=== PATIENT | female | born 1955 | race African-American/Black ===

== ENCOUNTER 2016-08-20 22:44 | Inpatient (IN) | payer OTHER ==
[~2016-08-20] VITALS: Ht 172.7 cm; Wt 97.3 kg
[~2016-08-20 22:44] MED LIST: BACL-141 PO; BENA20TA3 PO; IBUP-1509 PO
[2016-08-20] MEDS ORDERED: SODIUM CHLORIDE 0.9% 1000ML BAG (SEPSIS BOLUS) IV ONE (23:15)
[2016-08-20] MEDS ORDERED: ACETAMINOPHEN 325MG TABLET PO ONE (23:15)
[2016-08-20 23:18] LABS: BG BASE EXCESS -1.5 mmol/L (-2.0-2.0); BG CARBOXYHEMOGLOBIN 4.2 % (0.5-1.5); BG FRACTION INSPIRED OXYGEN 21; BG HCO3 ACT 23.5 mmol/L (22.0-26.0); BG METHEMOGLOBIN 0.1 % (0.0-1.5); BG OXYGEN SATURATION 92.7 % (92.0-98.5); BG OXYHEMOGLOBIN 88.7 % (94.0-97.0); BG PCO2 40.6 mmHg (35.0-45.0); BG PO2 67.6 mmHg (75.0-100.0); BG SAMPLE SITE LEFT RADIAL; BG TOTAL HEMOGLOBIN 15.1 g/dL (12.0-18.0); BG VENT MODE ROOM AIR
[2016-08-20 23:35] LABS: BASOPHILS % 0.2 % (0.0-2.0); EOSINOPHILS % 3.4 % (0.0-5.0); HEMATOCRIT. 41.9 % (36.0-48.0); HEMOGLOBIN. 14.3 g/dL (12.0-16.0); LYMPHOCYTES % 32.7 % (20.0-50.0); MEAN CORPUSCULAR HGB CONC 34.1 g/dL (31.0-37.0); MEAN PLATELET VOLUME 8.2 fl (7.4-10.4); MONOCYTES % 9.1 % (2.0-8.0); NEUTROPHILS % 54.6 % (40.0-76.0); PLATELET 229 x1000/uL (130-400); RED BLOOD CELL COUNT 4.31 mill/uL (4.2-5.4); RED CELL DISTRIBUTION WIDTH 13.1 % (11.6-14.6); WHITE BLOOD COUNT 9.3 x1000/uL (4.5-11.0)
[2016-08-20 23:50] LABS: AMMONIA 28 uMol/L (<32)
[2016-08-20 23:54] LABS: ACETAMINOPHEN < 2 ug/mL (10-30); ALANINE AMINOTRANSFERASE 47 IU/L (13-61); ALBUMIN 3.8 g/dL (3.4-5.0); ANION GAP 9; CALCIUM 8.3 mg/dL (8.5-10.1); CARBON DIOXIDE 24 mEq/L (21-32); CHLORIDE 110 mEq/L (98-107); ETHANOL BLOOD < 10 mg/dL; INDEX HEMOLYSI 1 (1-3); INDEX ICTERIC 1 (1-4); INDEX LIPEMIC 1 (1-3); NT PRO B-TYPE NATRIURETIC PEP 24 pg/mL (5-125); TROPONIN I < 0.02 ng/mL (0.00-0.04); UREA NITROGEN BLOOD 26 mg/dL (7-21); eGFR > 60 mL/min (>60)
[2016-08-21] LABS: THYROID STIMULATING HORMONE 0.79 uIU/mL (0.36-3.74)
[2016-08-21] MEDS ORDERED: AZITHROMYCIN 500 MG TABLET PO ONE (00:45)
[2016-08-21] MEDS ORDERED: CLONIDINE 0.1MG TABLET PO PRN (02:00)
[2016-08-21] MEDS ORDERED: MAGNESIUM/ALUMINUM HYDROXIDE/SIMETHICONE 30ML UDC PO PRN (02:00)
[2016-08-21] MEDS ORDERED: ENOXAPARIN 40MG/0.4ML SYR SUBCUT SCH (02:00)
[2016-08-21] MEDS ORDERED: ONDANSETRON HCL 4MG/2ML VIAL IV PRN (02:00)
[2016-08-21] MEDS ORDERED: IPRATROPIUM/ALBUTEROL 0.5-3(2.5)MG/3ML NEB INH PRN (02:00)
[2016-08-21] MEDS ORDERED: ACETAMINOPHEN 325MG TABLET PO PRN (02:00)
[2016-08-21 02:10] LABS: CLARITY URINE CLEAR (CLEAR); COLOR URINE YELLOW (YELLOW); GLUCOSE URINE NEGATIVE (NEGATIVE); KETONES URINE NEGATIVE (NEGATIVE); LEUKOCYTE ESTERASE URINE NEGATIVE (NEGATIVE); NITRITE URINE NEGATIVE (NEGATIVE); OCCULT BLOOD URINE NEGATIVE (NEGATIVE); PROTEIN URINE 2+ (NEGATIVE); SPECIFIC GRAVITY URINE 1.015 (1.005-1.030); UROBILINOGEN URINE 0.2 E.U./dL (0.2-1.0)
[2016-08-21 02:24] LABS: RBC URINE NONE SEEN /hpf (0-2)
[2016-08-21 02:25] LABS: BACTERIA URINE NONE SEEN; SQUAMOUS EPITHELIAL CELL URINE 1+ /lpf (RARE/1+); WBC URINE 0-2 /hpf (0-2)
[2016-08-21 02:31] LABS: MAGNESIUM 2.3 mg/dL (1.8-2.4)
[2016-08-21 05:45] VITALS: BP 133/87
[2016-08-21 05:48] VITALS: BP 133/87
[2016-08-21 06:49] LABS: BASOPHILS % 0.6 % (0.0-2.0); EOSINOPHILS % 2.5 % (0.0-5.0); HEMOGLOBIN. 13.1 g/dL (12.0-16.0); LYMPHOCYTES % 42.5 % (20.0-50.0); MEAN CORPUSCULAR HEMOGLOBIN 32.7 pg (28.0-32.0); MEAN CORPUSCULAR HGB CONC 33.6 g/dL (31.0-37.0); MEAN CORPUSCULAR VOLUME 97.2 fL (81.0-99.0); MEAN PLATELET VOLUME 8.4 fl (7.4-10.4); MONOCYTES % 8.3 % (2.0-8.0); NEUTROPHILS % 46.1 % (40.0-76.0); PLATELET 207 x1000/uL (130-400); RED BLOOD CELL COUNT 4.01 mill/uL (4.2-5.4); RED CELL DISTRIBUTION WIDTH 13.2 % (11.6-14.6); WHITE BLOOD COUNT 9.9 x1000/uL (4.5-11.0)
[2016-08-21 07:55] LABS: ALANINE AMINOTRANSFERASE 39 IU/L (13-61); ALBUMIN 3.4 g/dL (3.4-5.0); ANION GAP 11; CARBON DIOXIDE 25 mEq/L (21-32); CHLORIDE 111 mEq/L (98-107); CREATINE KINASE 107 IU/L (26-192); CREATINE KINASE MB FRACTION 1.1 ng/mL (0.5-3.6); HDL CHOLESTEROL 62 mg/dL (40-59); INDEX HEMOLYSI 1 (1-3); INDEX ICTERIC 1 (1-4); INDEX LIPEMIC 1 (1-3); LDL CHOLESTEROL 80 mg/dL (5-100); TRIGLYCERIDE 96 mg/dL (0-150); TROPONIN I < 0.02 ng/mL (0.00-0.04); UREA NITROGEN BLOOD 17 mg/dL (7-21); eGFR > 60 mL/min (>60)
[2016-08-21 08:00] VITALS: BP_SYST 126; BP_SYST 148; BP_DIAS 76; BP_DIAS 88
[2016-08-21] MEDS ORDERED: PNEUMOCOCCAL 23-VAL P-SAC VAC 0.5 ML IM ONE (10:30)
[2016-08-21] MEDS: ENOXAPARIN 30MG/0.3ML SYR SUBCUT SCH ×2 (11:12→20:39)
[2016-08-21] MEDS: PIPERACILLIN/TAZ 3.375G PREMIX 50 ML IV SCH ×3 (11:13→23:49)
[2016-08-21] MEDS: SODIUM CHLORIDE 0.9% 1,000 ML IV SCH ×2 (11:13→14:22)
[2016-08-21 11:52] LABS: *AMPHETAMINES SCREEN URINE NEGATIVE (NEGATIVE); *BARBITURATES SCREEN URINE NEGATIVE (NEGATIVE); *BENZODIAZEPINES SCREEN URINE NEGATIVE (NEGATIVE); *COCAINE SCREEN URINE PRESUMTIVE POSITIVE (NEGATIVE); CANNABINOID URINE SCREEN PRESUMTIVE POSITIVE (NEGATIVE); ECSTASY MDMA SCREEN URINE NEGATIVE (NEGATIVE); METHADONE URINE SCREEN NEGATIVE (NEGATIVE); OPIATES URINE SCREEN NEGATIVE (NEGATIVE); PHENCYCLIDINE URINE SCREEN PRESUMTIVE POSITIVE (NEGATIVE)
[2016-08-21 12:00] VITALS: BP 134/76
[2016-08-21] MEDS: AMLODIPINE 5MG TABLET PO SCH (15:12)
[2016-08-21] MEDS: HYDROCODONE/APAP 7.5/325MG 1 TAB TABLET PO PRN ×3 (15:13→23:57)
[2016-08-21 16:00] VITALS: BP 128/87
[2016-08-21 16:20] LABS: CREATINE KINASE 118 IU/L (26-192); CREATINE KINASE MB FRACTION 0.9 ng/mL (0.5-3.6); INDEX HEMOLYSI 1 (1-3); TROPONIN I < 0.02 ng/mL (0.00-0.04)
[2016-08-21 20:00] VITALS: BP_SYST 120; BP_SYST 131; BP_SYST 143; BP_DIAS 85; BP_DIAS 88
[2016-08-22] VITALS: BP 142/83
[2016-08-22] MEDS: SODIUM CHLORIDE 0.9% 1,000 ML IV SCH ×2 (00:59→15:22)
[2016-08-22 04:00] VITALS: BP 141/97
[2016-08-22] MEDS: HYDROCODONE/APAP 7.5/325MG 1 TAB TABLET PO PRN ×2 (05:12→09:26)
[2016-08-22 06:49] LABS: EOSINOPHILS % 3.6 % (0.0-5.0); HEMATOCRIT. 40.5 % (36.0-48.0); HEMOGLOBIN. 13.6 g/dL (12.0-16.0); LYMPHOCYTES % 50.5 % (20.0-50.0); MEAN CORPUSCULAR HGB CONC 33.7 g/dL (31.0-37.0); MEAN CORPUSCULAR VOLUME 98.1 fL (81.0-99.0); MEAN PLATELET VOLUME 8.5 fl (7.4-10.4); MONOCYTES % 8.7 % (2.0-8.0); NEUTROPHILS % 36.2 % (40.0-76.0); PLATELET 199 x1000/uL (130-400); RED BLOOD CELL COUNT 4.12 mill/uL (4.2-5.4); RED CELL DISTRIBUTION WIDTH 13.2 % (11.6-14.6); WHITE BLOOD COUNT 8.1 x1000/uL (4.5-11.0)
[2016-08-22 07:59] LABS: CHLORIDE 104 mEq/L (98-107); INDEX HEMOLYSI 2 (1-3); INDEX ICTERIC 1 (1-4); INDEX LIPEMIC 1 (1-3)
[2016-08-22 08:00] VITALS: BP 129/83
[2016-08-22 08:10] LABS: ANION GAP 14; CALCIUM 8.4 mg/dL (8.5-10.1); CARBON DIOXIDE 23 mEq/L (21-32); UREA NITROGEN BLOOD 16 mg/dL (7-21); eGFR > 60 mL/min (>60)
[2016-08-22] MEDS: PIPERACILLIN/TAZ 3.375G PREMIX 50 ML IV SCH (09:23)
[2016-08-22] MEDS: AMLODIPINE 5MG TABLET PO SCH (09:25)
[2016-08-22] MEDS: ENOXAPARIN 30MG/0.3ML SYR SUBCUT SCH (09:26)
[2016-08-22 12:00] VITALS: BP 139/87
[2016-08-22 16:00] VITALS: BP 120/84
[2016-08-22 17:49] VITALS: BP 130/80
== END 2016-08-22 17:10 | disposition home or self-care (01) | DRG 204 ==
LOC: ER 23:00 → 7WST 08-21 01:20
PROVIDERS: ADMIT Internal Medicine; ATTEND Internal Medicine
DX: R55 Syncope and collapse (principal); R56.9 Unspecified convulsions; J44.9 Chronic obstructive pulmonary disease, unspecified; I10 Essential (primary) hypertension; E66.9 Obesity, unspecified; E78.5 Hyperlipidemia, unspecified; F17.200 Nicotine dependence, unspecified, uncomplicated; M19.90 Unspecified osteoarthritis, unspecified site; F12.10 Cannabis abuse, uncomplicated; R73.9 Hyperglycemia, unspecified; G89.29 Other chronic pain; F19.10 Other psychoactive substance abuse, uncomplicated; M25.511 Pain in right shoulder; J32.9 Chronic sinusitis, unspecified; Z68.32 Body mass index [BMI] 32.0-32.9, adult; Z90.49 Acquired absence of other specified parts of digestive tract
CPT/HCPCS: 36415; 36600; 43753; 70450; 70551; 71010; 73030; 73060; 80048; 80053; 80061; 80305; 80307; 81001; 82140; 82375; 82550; 82553; 82805; 82962; 83605; 83735; 83880; 84443; 84484; 85025; 87040; 87086; 90732; 93005; 93306; 93970; 96360; 96361; 97162; 99285; G0482; J1650; J2543; J7030

== ENCOUNTER 2017-01-08 09:49 | Emergency (ER) | payer OTHER ==
[~2017-01-08] VITALS: Ht 172.7 cm; Wt 86.0 kg
[~2017-01-08 09:49] MED LIST changes: -IBUP-1509 PO; +IBUP-2028 PO
[2017-01-08 09:55] VITALS: BP 158/85
[2017-01-08] MEDS ORDERED: OLANZAPINE 15 MG PO (10:20)
== END 2017-01-08 15:16 | disposition left against medical advice (07) ==
LOC: ER 09:49
DX: Z53.21 Procedure and treatment not carried out due to patient leaving prior to being seen by health care provider (principal)

== ENCOUNTER 2017-04-05 00:17 | Emergency (ER) | payer OTHER ==
[~2017-04-05] VITALS: Ht 167.6 cm; Wt 82.0 kg
[~2017-04-05 00:17] MED LIST changes: +OLANZAPINE 15 MG PO
[2017-04-05] MEDS ORDERED: BACITRACIN ZINC OINT UDPKT TOP ONE (04:30)
[2017-04-05] MEDS ORDERED: IBUPROFEN 600MG TABLET PO ONE (06:45)
[2017-04-05 06:58] VITALS: BP 138/85
== END 2017-04-05 06:55 | disposition home or self-care (01) ==
LOC: ER 00:27
DX: S01.81XA Laceration without foreign body of other part of head, initial encounter (principal); W01.118A Fall on same level from slipping, tripping and stumbling with subsequent striking against other sharp object, initial encounter; Y93.41 Activity, dancing; Y92.090 Kitchen in other non-institutional residence as the place of occurrence of the external cause; I10 Essential (primary) hypertension; F17.210 Nicotine dependence, cigarettes, uncomplicated; F12.90 Cannabis use, unspecified, uncomplicated; Z98.890 Other specified postprocedural states; Z79.899 Other long term (current) drug therapy
CPT/HCPCS: 36415; 70450; 99285; G0482; Z7610

== ENCOUNTER 2017-05-21 20:05 | Emergency (ER) | payer OTHER ==
[~2017-05-21] VITALS: Ht 170.2 cm; Wt 77.0 kg
[2017-05-21] MEDS ORDERED: ACETAMINOPHEN 325MG TABLET PO ONE (23:15)
[2017-05-21 23:48] VITALS: BP 124/75
== END 2017-05-21 23:50 | disposition home or self-care (01) ==
LOC: ER 20:05
DX: M25.511 Pain in right shoulder (principal); E11.9 Type 2 diabetes mellitus without complications; I10 Essential (primary) hypertension; F12.10 Cannabis abuse, uncomplicated
CPT/HCPCS: 99283

== ENCOUNTER 2017-07-17 04:56 | Emergency (ER) | payer OTHER ==
[~2017-07-17] VITALS: Ht 172.7 cm; Wt 68.2 kg
[2017-07-17 12:01] VITALS: BP 139/90
[2017-07-17] MEDS ORDERED: IBUPROFEN 600MG TABLET PO STA (12:56)
== END 2017-07-17 13:35 | disposition home or self-care (01) ==
LOC: ER 06:14
DX: S60.211A Contusion of right wrist, initial encounter (principal); F43.21 Adjustment disorder with depressed mood; Z63.4 Disappearance and death of family member; W22.8XXA Striking against or struck by other objects, initial encounter; W19.XXXA Unspecified fall, initial encounter; Y93.G3 Activity, cooking and baking; Y92.090 Kitchen in other non-institutional residence as the place of occurrence of the external cause
CPT/HCPCS: 73110; 73130; 99284; A4565

== ENCOUNTER 2017-12-31 21:45 | Emergency (ER) | payer OTHER ==
[~2017-12-31] VITALS: Ht 172.7 cm; Wt 77.0 kg
[~2017-12-31 21:45] MED LIST changes: +BENA20TA10 PO; -BENA20TA3 PO
[2017-12-31] MEDS ORDERED: ONDANSETRON HCL 4MG/2ML INJ IV STA (23:14)
[2017-12-31] MEDS ORDERED: SODIUM CHLORIDE 0.9% 1,000 ML IV ONE (23:14)
[2017-12-31] MEDS ORDERED: MORPHINE SULFATE 4 MG/ML CPJ (NOT FOR IM USE) IV STA (23:14)
[2018-01-01 00:06] LABS: BASOPHILS % 0.9 % (0.0-2.0); EOSINOPHILS % 2.8 % (0.0-5.0); HEMATOCRIT. 41.6 % (36.0-48.0); HEMOGLOBIN. 13.8 g/dL (12.0-16.0); LYMPHOCYTES % 28.1 % (20.0-50.0); MEAN CORPUSCULAR HEMOGLOBIN 32.7 pg (28.0-32.0); MEAN CORPUSCULAR VOLUME 98.6 fL (81.0-99.0); MEAN PLATELET VOLUME 7.5 fl (7.4-10.4); MONOCYTES % 8.2 % (2.0-8.0); PLATELET 316 x1000/uL (130-400); RED BLOOD CELL COUNT 4.22 mill/uL (4.2-5.4); RED CELL DISTRIBUTION WIDTH 12.9 % (11.6-14.6)
[2018-01-01 00:13] LABS: CHLORIDE 109 mEq/L (98-107)
[2018-01-01 06:39] VITALS: BP 156/91
== END 2018-01-01 07:24 | disposition home or self-care (01) ==
LOC: ER 22:03
DX: S09.8XXA Other specified injuries of head, initial encounter (principal); S42.392A Other fracture of shaft of left humerus, initial encounter for closed fracture; S16.1XXA Strain of muscle, fascia and tendon at neck level, initial encounter; S39.012A Strain of muscle, fascia and tendon of lower back, initial encounter; I10 Essential (primary) hypertension; F12.10 Cannabis abuse, uncomplicated; W18.39XA Other fall on same level, initial encounter; Y93.89 Activity, other specified; Y92.89 Other specified places as the place of occurrence of the external cause; Y99.8 Other external cause status; Z98.890 Other specified postprocedural states
CPT/HCPCS: 36415; 70450; 71045; 72100; 72125; 73060; 73070; 80048; 84484; 85025; 93005; 96374; 96375; 99285; J2270; J2405; J7030; Z7610

== ENCOUNTER 2018-01-14 20:10 | Emergency (ER) | payer OTHER ==
[~2018-01-14] VITALS: Ht 162.6 cm; Wt 77.0 kg
[2018-01-14] MEDS ORDERED: ACETAMINOPHEN 325MG TABLET PO ONE (21:30)
[2018-01-14 23:39] VITALS: BP 143/96
== END 2018-01-15 00:07 | disposition home or self-care (01) ==
LOC: ER 20:10
DX: S50.312A Abrasion of left elbow, initial encounter (principal); I10 Essential (primary) hypertension; F12.10 Cannabis abuse, uncomplicated; Z79.899 Other long term (current) drug therapy; W18.39XA Other fall on same level, initial encounter; Y93.89 Activity, other specified; Y92.89 Other specified places as the place of occurrence of the external cause; Y99.8 Other external cause status
CPT/HCPCS: 73060; 73080; 73090; 99284; A4565

== ENCOUNTER 2018-01-30 16:22 | Emergency (ER) | payer OTHER ==
[~2018-01-30] VITALS: Ht 167.6 cm; Wt 80.0 kg
[2018-01-30 16:28] VITALS: BP 146/88
== END 2018-01-30 21:44 | disposition left against medical advice (07) ==
LOC: ER 16:22
DX: Z53.21 Procedure and treatment not carried out due to patient leaving prior to being seen by health care provider (principal)

== ENCOUNTER 2018-01-31 00:47 | Emergency (ER) | payer OTHER ==
[~2018-01-31] VITALS: Ht 172.7 cm; Wt 91.0 kg
[2018-01-31] MEDS ORDERED: SODIUM CHLORIDE 0.9% 1,000 ML IV ONE (02:21)
[2018-01-31] MEDS ORDERED: KETOROLAC 30MG/ML VIAL IV STA (02:21)
[2018-01-31 02:53] LABS: CHLORIDE 109 mEq/L (98-107)
[2018-01-31 03:14] LABS: BASOPHILS % 0.8 % (0.0-2.0); HEMATOCRIT. 43.9 % (36.0-48.0); HEMOGLOBIN. 14.8 g/dL (12.0-16.0); LYMPHOCYTES % 46.4 % (20.0-50.0); MEAN CORPUSCULAR HEMOGLOBIN 33.3 pg (28.0-32.0); MEAN CORPUSCULAR VOLUME 98.5 fL (81.0-99.0); MEAN PLATELET VOLUME 7.6 fl (7.4-10.4); MONOCYTES % 7.1 % (2.0-8.0); NEUTROPHILS % 42.7 % (40.0-76.0); PLATELET 278 x1000/uL (130-400); RED BLOOD CELL COUNT 4.46 mill/uL (4.2-5.4); RED CELL DISTRIBUTION WIDTH 13.5 % (11.6-14.6)
[2018-01-31 03:25] LABS: CLARITY URINE CLEAR (CLEAR); COLOR URINE YELLOW (YELLOW); KETONES URINE NEGATIVE (NEGATIVE); LEUKOCYTE ESTERASE URINE NEGATIVE (NEGATIVE); NITRITE URINE NEGATIVE (NEGATIVE); OCCULT BLOOD URINE NEGATIVE (NEGATIVE); PROTEIN URINE NEGATIVE (NEGATIVE); SPECIFIC GRAVITY URINE 1.026 (1.005-1.030)
[2018-01-31 04:10] VITALS: BP 134/85
[2018-01-31] MEDS ORDERED: IOHEXOL-300 100 ML BOTTLE ONE (05:35)
== END 2018-01-31 07:24 | disposition home or self-care (01) ==
LOC: ER 00:47
DX: R07.89 Other chest pain (principal); R05 Cough; R74.8 Abnormal levels of other serum enzymes; F12.10 Cannabis abuse, uncomplicated; F14.10 Cocaine abuse, uncomplicated
CPT/HCPCS: 36415; 71045; 74177; 80053; 81003; 84484; 85025; 85610; 93005; 96374; 99285; J1885; J7030; Q9967

== ENCOUNTER 2018-06-10 16:27 | Emergency (ER) | payer OTHER ==
[~2018-06-10] VITALS: Ht 165.1 cm; Wt 60.0 kg
[2018-06-10] MEDS ORDERED: HYDROCODONE/ACETAMINOPHEN 5/325MG TABLET PO ONE (20:15)
[2018-06-10 21:26] VITALS: BP 120/67
== END 2018-06-10 21:30 | disposition home or self-care (01) ==
LOC: ER 16:47
DX: M25.511 Pain in right shoulder (principal); I10 Essential (primary) hypertension
CPT/HCPCS: 73030; 99283

== ENCOUNTER 2018-06-11 10:53 | Emergency (ER) | payer OTHER ==
[~2018-06-11] VITALS: Ht 170.2 cm; Wt 95.0 kg
[2018-06-11] MEDS ORDERED: ASPIRIN 325MG TABLET PO ONE (11:30)
[2018-06-11 11:55] LABS: EOSINOPHILS % 2.5 % (0.0-5.0); HEMATOCRIT. 39.9 % (36.0-48.0); HEMOGLOBIN. 13.3 g/dL (12.0-16.0); LYMPHOCYTES % 52.9 % (20.0-50.0); MEAN CORPUSCULAR HEMOGLOBIN 32.9 pg (28.0-32.0); MEAN CORPUSCULAR VOLUME 98.6 fL (81.0-99.0); MEAN PLATELET VOLUME 7.5 fl (7.4-10.4); MONOCYTES % 8.9 % (2.0-8.0); NEUTROPHILS % 34.7 % (40.0-76.0); PLATELET 220 x1000/uL (130-400); RED BLOOD CELL COUNT 4.05 mill/uL (4.2-5.4); RED CELL DISTRIBUTION WIDTH 13.1 % (11.6-14.6)
[2018-06-11 11:59] LABS: CHLORIDE 108 mEq/L (98-107)
[2018-06-11] MEDS ORDERED: ASPIRIN 325MG TABLET PO NR (12:00)
[2018-06-11] MEDS ORDERED: KETOROLAC 30MG/ML VIAL IV ONE (18:30)
[2018-06-11 22:32] VITALS: BP 110/80
== END 2018-06-11 23:37 | disposition home or self-care (01) ==
LOC: ER 11:00
DX: R07.89 Other chest pain (principal); R05 Cough; I10 Essential (primary) hypertension; F17.200 Nicotine dependence, unspecified, uncomplicated; F12.10 Cannabis abuse, uncomplicated; F14.10 Cocaine abuse, uncomplicated; Z90.49 Acquired absence of other specified parts of digestive tract; Z98.890 Other specified postprocedural states; Z79.899 Other long term (current) drug therapy
CPT/HCPCS: 36415; 71045; 80053; 83880; 84484; 85025; 93005; 96374; 99284; 99406; J1885

== ENCOUNTER 2018-08-31 12:15 | Emergency (ER) | payer OTHER ==
[~2018-08-31] VITALS: Ht 175.3 cm; Wt 82.0 kg
[2018-08-31] MEDS ORDERED: LIDOCAINE HCL 1% 20ML VIAL (Pyxis) INJ INFIL ONE (13:15)
[2018-08-31] MEDS ORDERED: KETOROLAC 60MG/2ML VIAL IM ONE (13:45)
[2018-08-31 15:28] VITALS: BP 124/94
== END 2018-08-31 15:48 | disposition home or self-care (01) ==
LOC: ER 12:27
DX: S01.81XA Laceration without foreign body of other part of head, initial encounter (principal); F14.10 Cocaine abuse, uncomplicated; F12.10 Cannabis abuse, uncomplicated; I10 Essential (primary) hypertension; Z90.49 Acquired absence of other specified parts of digestive tract; Z79.899 Other long term (current) drug therapy; W22.8XXA Striking against or struck by other objects, initial encounter; Y93.89 Activity, other specified; Y92.89 Other specified places as the place of occurrence of the external cause; Y99.8 Other external cause status
CPT/HCPCS: 12013; 96372; 99283; J1885; J3490; Z7610

== ENCOUNTER 2019-03-27 23:54 | Emergency (ER) | payer OTHER ==
[~2019-03-27] VITALS: Ht 175.3 cm; Wt 87.0 kg
[2019-03-28 02:23] LABS: HEMATOCRIT 50.4 % (36.0-48.0); HEMOGLOBIN 16.6 g/dL (12.0-16.0); MEAN CORPUSCULAR HEMOGLOBIN 32.7 pg (28.0-32.0); MEAN CORPUSCULAR VOLUME 99.3 fL (81.0-99.0); PLATELET 227 x1000/uL (130-400); RED BLOOD CELL COUNT 5.07 mill/uL (4.2-5.4); RED CELL DISTRIBUTION WIDTH 13.2 % (11.6-14.6)
[2019-03-28 02:26] LABS: CHLORIDE 105 mEq/L (98-107)
[2019-03-28] MEDS ORDERED: FOLIC ACID 1 MG, THIAMINE HCL 100 MG, MVI, ADULT NO.1 10 ML in DEXTROSE 5% WATER 1,000 ML IV ONE ×4 (02:30)
[2019-03-28 07:58] VITALS: BP 160/70
== END 2019-03-28 08:14 | disposition home or self-care (01) ==
LOC: ER 23:54
DX: S09.8XXA Other specified injuries of head, initial encounter (principal); F10.10 Alcohol abuse, uncomplicated; Y90.9 Presence of alcohol in blood, level not specified; R51 Headache; E11.9 Type 2 diabetes mellitus without complications; I10 Essential (primary) hypertension; F17.200 Nicotine dependence, unspecified, uncomplicated; W10.9XXA Fall (on) (from) unspecified stairs and steps, initial encounter; Y93.01 Activity, walking, marching and hiking; Y92.9 Unspecified place or not applicable
CPT/HCPCS: 36415; 70450; 80048; 85027; 96365; 96366; 99284; J3411; J3490; J7070; Z7610

== ENCOUNTER 2019-07-25 15:21 | Inpatient (IN) | payer MEDICAID, OTHER ==
[~2019-07-25] VITALS: Ht 172.7 cm; Wt 87.1 kg
[2019-07-25] MEDS ORDERED: SODIUM CHLORIDE 0.9% 250 ML IV ONE (15:51)
[2019-07-25 16:24] LABS: CHLORIDE 111 mEq/L (98-107)
[2019-07-25 16:31] LABS: BASOPHILS % 0.9 % (0.0-2.0); EOSINOPHILS % 2.6 % (0.0-5.0); HEMOGLOBIN. 14.2 g/dL (12.0-16.0); LYMPHOCYTES % 28.1 % (20.0-50.0); MEAN CORPUSCULAR HEMOGLOBIN 33.3 pg (28.0-32.0); MEAN CORPUSCULAR VOLUME 98.2 fL (81.0-99.0); MEAN PLATELET VOLUME 8.2 fl (7.4-10.4); MONOCYTES % 5.3 % (2.0-8.0); NEUTROPHILS % 63.1 % (40.0-76.0); PLATELET 211 x1000/uL (130-400); RED BLOOD CELL COUNT 4.28 mill/uL (4.2-5.4); RED CELL DISTRIBUTION WIDTH 13.2 % (11.6-14.6)
[2019-07-25] MEDS ORDERED: ASPIRIN 325MG EC TABLET PO NR (16:45)
[2019-07-25 17:17] LABS: PROTHROMBIN TIME 10.8 sec (9.6-11.0)
[2019-07-26] VITALS (9 sets, daily range): BP systolic 114–155; BP diastolic 73–90
[2019-07-26] MEDS ORDERED: ACETAMINOPHEN 325MG TABLET PO PRN (08:30)
[2019-07-26] MEDS ORDERED: ONDANSETRON HCL 4MG/2ML INJ IV PRN (08:30)
[2019-07-26] MEDS ORDERED: IPRATROPIUM/ALBUTEROL 0.5-3(2.5)MG/3ML NEB HHN PRN (08:30)
[2019-07-26] MEDS ORDERED: MELO-104 PO (09:42)
[2019-07-26] MEDS: ENOXAPARIN 40MG/0.4ML SYR SUBCUT SCH (09:59)
[2019-07-26 11:11] LABS: *AMPHETAMINES SCREEN URINE NEGATIVE (NEGATIVE)
[2019-07-26 11:12] LABS: *BARBITURATES SCREEN URINE NEGATIVE (NEGATIVE); *BENZODIAZEPINES SCREEN URINE NEGATIVE (NEGATIVE); *COCAINE SCREEN URINE PRESUMTIVE POSITIVE (NEGATIVE); METHADONE URINE SCREEN NEGATIVE (NEGATIVE); OPIATES URINE SCREEN NEGATIVE (NEGATIVE); PHENCYCLIDINE URINE SCREEN PRESUMTIVE POSITIVE (NEGATIVE)
[2019-07-26 11:13] LABS: CANNABINOID URINE SCREEN PRESUMTIVE POSITIVE (NEGATIVE)
[2019-07-26] MEDS ORDERED: DILTIAZEM HCL 60MG TABLET PO SCH (12:00)
[2019-07-26 12:07] LABS: CHLORIDE 111 mEq/L (98-107)
[2019-07-26] MEDS ORDERED: INFLUENZA VIRUS VACCINE(AFLURIA) 0.5ML SYR IM ONE (15:00)
[2019-07-26 15:24] LABS: HEPATITIS B SURFACE ANTIGEN NEGATIVE
[2019-07-26 15:54] LABS: HEPATITIS A AB IGM NEGATIVE (NEGATIVE)
[2019-07-27] VITALS (9 sets, daily range): BP systolic 122–150; BP diastolic 65–90
[2019-07-27] MEDS: ENOXAPARIN 40MG/0.4ML SYR SUBCUT SCH (08:14)
[2019-07-27] MEDS ORDERED: REGADENOSON 0.4 MG/5 ML IV NR (09:00)
[2019-07-27] MEDS ORDERED: REGADENOSON 0.4 MG/5 ML IV ONE (09:57)
== END 2019-07-27 17:11 | disposition home or self-care (01) | DRG 201 ==
LOC: ER 15:21 → 3WST 18:13 → EDBEDREQ 18:23 → EDBEDREQTM 18:23 → EDBEDREQ 20:40 → ENRESERV 07-26 07:09
PROVIDERS: ADMIT Internal Medicine; ATTEND Internal Medicine
DX: I47.1 Supraventricular tachycardia (principal); N17.0 Acute kidney failure with tubular necrosis; E87.8 Other disorders of electrolyte and fluid balance, not elsewhere classified; E11.9 Type 2 diabetes mellitus without complications; I10 Essential (primary) hypertension; R74.0 Nonspecific elevation of levels of transaminase and lactic acid dehydrogenase [LDH]; J44.9 Chronic obstructive pulmonary disease, unspecified; F12.90 Cannabis use, unspecified, uncomplicated; F16.90 Hallucinogen use, unspecified, uncomplicated; F17.210 Nicotine dependence, cigarettes, uncomplicated; F14.90 Cocaine use, unspecified, uncomplicated; Z71.51 Drug abuse counseling and surveillance of drug abuser; Z79.899 Other long term (current) drug therapy; Z71.6 Tobacco abuse counseling
CPT/HCPCS: 36415; 71045; 78452; 80048; 80053; 80076; 80305; 82962; 83880; 84443; 84484; 85025; 86705; 86709; 86803; 87340; 90686; 93005; 93017; 93306; 99285; A9500; J1650; J2785; J7050

== ENCOUNTER 2019-10-16 09:36 | Emergency (ER) | payer OTHER ==
[~2019-10-16] VITALS: Ht 172.7 cm; Wt 100.0 kg
[~2019-10-16 09:36] MED LIST changes: +MELO-104 PO
[2019-10-16 09:40] VITALS: BP 114/63
[2019-10-16] MEDS ORDERED: ALBUTEROL 6.7GM HFA INHALER ORI ONE (10:30)
[2019-10-16] MEDS ORDERED: DEXAMETHASONE 10 MG/ML VIAL IM ONE (10:30)
== END 2019-10-16 13:02 | disposition home or self-care (01) ==
LOC: ER 09:36
DX: J44.1 Chronic obstructive pulmonary disease with (acute) exacerbation (principal); J45.901 Unspecified asthma with (acute) exacerbation; Z20.828 Contact with and (suspected) exposure to other viral communicable diseases; I10 Essential (primary) hypertension; E11.9 Type 2 diabetes mellitus without complications; F14.10 Cocaine abuse, uncomplicated; F12.10 Cannabis abuse, uncomplicated; Z79.899 Other long term (current) drug therapy
CPT/HCPCS: 71045; 94640; 96372; 99284; C9803; J1100; U0003; Z7610

== ENCOUNTER 2020-03-16 13:09 | Emergency (ER) | payer OTHER ==
[~2020-03-16] VITALS: Ht 167.6 cm; Wt 68.0 kg
[2020-03-16 13:13] VITALS: BP 177/121
[2020-03-16] MEDS ORDERED: ACETAMINOPHEN 325MG TABLET PO STA (13:34)
[2020-03-16] MEDS ORDERED: SODIUM CHLORIDE 0.9% 1,000 ML IV ONE (13:45)
== END 2020-03-16 15:06 | disposition left against medical advice (07) ==
LOC: ER 13:20
DX: R41.82 Altered mental status, unspecified (principal); R50.9 Fever, unspecified; E11.9 Type 2 diabetes mellitus without complications; I10 Essential (primary) hypertension; F12.10 Cannabis abuse, uncomplicated; Z79.899 Other long term (current) drug therapy
CPT/HCPCS: 93005; 99283; J7030

== ENCOUNTER 2021-02-04 18:29 | Emergency (ER) | payer OTHER ==
[~2021-02-04] VITALS: Ht 167.6 cm; Wt 82.0 kg
[2021-02-04 18:35] VITALS: BP 230/131
== END 2021-02-04 21:01 | disposition home or self-care (01) ==
LOC: ER 18:29
DX: F16.10 Hallucinogen abuse, uncomplicated (principal); E11.9 Type 2 diabetes mellitus without complications; I10 Essential (primary) hypertension; F12.10 Cannabis abuse, uncomplicated; Z79.899 Other long term (current) drug therapy
CPT/HCPCS: 93005; 99283

== ENCOUNTER 2024-11-11 17:09 | Emergency (ER) | payer OTHER, MEDICAID ==
[~2024-11-11] VITALS: Ht 172.7 cm; Wt 86.0 kg
[~2024-11-11 17:09] MED LIST changes: +BENA-8 PO; -BENA20TA10 PO
[2024-11-11 17:27] VITALS: TEMP 36.7; O2SAT 95
[2024-11-11] MEDS: KETOROLAC 15MG/ML VIAL IM ONE (21:47)
[2024-11-11] MEDS: ACETAMINOPHEN 325MG TABLET PO ONE (21:47)
[2024-11-11] MEDS: LIDOCAINE 5% PATCH TOP SCH (21:48)
[2024-11-11] MEDS ORDERED: LIDO-53 TP (22:11)
[2024-11-11] MEDS ORDERED: ACET-2708 MT (22:11)
[2024-11-11 22:20] VITALS: BP 167/89; PULSE 87; RESP 18; O2SAT 95
== END 2024-11-12 00:14 | disposition home or self-care (01) ==
LOC: ER 17:44
DX: G89.29 Other chronic pain (principal); M25.512 Pain in left shoulder; E11.9 Type 2 diabetes mellitus without complications; I10 Essential (primary) hypertension; Z79.899 Other long term (current) drug therapy; Z96.612 Presence of left artificial shoulder joint; W18.39XA Other fall on same level, initial encounter; Y93.89 Activity, other specified; Y92.89 Other specified places as the place of occurrence of the external cause; Y99.8 Other external cause status
CPT/HCPCS: 73030; 96372; 99283; J1885; Z7610